=== PATIENT | male | born 1955 | race Caucasian/White ===

== ENCOUNTER → 2019-07-16 | Outpatient (CLI) | payer OTHER ==
[~2019-07-16] MED LIST: ALBUTEROL SULFATE 2.5 MG/3 ML NEBU. NEB ONE
== END | disposition home or self-care (01) ==
LOC: PF 09:45
PROVIDERS: ATTEND Internal Medicine
DX: Z02.71 Encounter for disability determination (principal); J44.9 Chronic obstructive pulmonary disease, unspecified
CPT/HCPCS: 94060; 94640; J7613